=== PATIENT | female | born 1955 | race Two or more races ===

== ENCOUNTER 2018-06-08 09:28 | Emergency (ER) | payer OTHER ==
[~2018-06-08] VITALS: Ht 170.2 cm; Wt 97.1 kg
[~2018-06-08 09:28] MED LIST: AZITHROMYCIN250 MG ORAL; CIPRO500 MG PO; CRESTOR10 MG PO; IBUPROFEN600 MG ORAL; METRONIDAZOLE500 MG ORAL; SYNTHROID100 MCG PO
[2018-06-08 09:34] VITALS: BP 127/84
[2018-06-08] MEDS ORDERED: Isovue-300 100ml vial INJ PRN (10:00)
[2018-06-08 10:09] LABS: APPEARANCE,URINE CLEAR; BILIRUBIN, URINE NEGATIVE (NEGATIVE); COLOR,URINE PALE YELLOW; GLUCOSE, URINE (UA) NEGATIVE (NEGATIVE); KETONES,URINE NEGATIVE (NEGATIVE); LEUKOCYTE ESTERASE ,URINE NEGATIVE (NEGATIVE); NITRITE,URINE NEGATIVE (NEGATIVE); PH,URINE 6 (4.5-8.0); PROTEIN,URINE NEGATIVE (NEGATIVE); UROBILINOGEN,URINE NORMAL MG/DL (0.0-1.0)
[2018-06-08 10:11] LABS: BASOPHILS % (AUTO) 0.8 % (0.0-2.0); EOSINOPHILS % (AUTO) 1.3 % (0.0-3.0); HEMATOCRIT 43.2 % (37.0-47.0); HEMOGLOBIN 14.5 G/DL (12.0-16.0); LYMPHOCYTES % (AUTO) 37.6 % (20.0-45.0); MEAN CORPUSCULAR VOLUME 86 FL (80-99); MONOCYTES % (AUTO) 6.7 % (1.0-10.0); NEUTROPHILS % (AUTO) 53.6 % (45.0-75.0); PLATELET COUNT 284 K/UL (150-450); RED CELL DISTRIBUTION WIDTH 12.5 % (11.6-14.8); WHITE BLOOD COUNT 7.3 K/UL (4.8-10.8)
[2018-06-08 10:20] LABS: ANION GAP 6 mmol/L (5-15); BLOOD UREA NITROGEN 14 mg/dL (7-18); CALCIUM 9.1 MG/DL (8.5-10.1); CARBON DIOXIDE 26 MMOL/L (21-32); CHLORIDE 106 MMOL/L (98-107); POTASSIUM 4.1 MMOL/L (3.5-5.1); SODIUM 138 MMOL/L (136-145)
[2018-06-08 10:25] LABS: ALANINE AMINOTRANSFERASE 24 U/L (12-78); ALBUMIN 3.6 G/DL (3.4-5.0); ALBUMIN/GLOBULIN RATIO 0.8 (1.0-2.7); ALKALINE PHOSPHATASE 54 U/L (46-116); ASPARTATE AMINO TRANSFERASE 23 U/L (15-37); BILIRUBIN,TOTAL 0.5 MG/DL (0.2-1.0)
--- NOTE | 2018-06-08 10:39 | Emergency Room Report ---
History of Present Illness General Chief Complaint: Abdominal Pain Source: Patient, Medical Record Present Illness HPI Patient presents emergency department today complaining of abdominal pain. Patient states that she's had abdominal pain for several weeks with multiple bowel movements. She denies any vomiting but complains of nausea. The pain is more in the suprapubic and bilateral lower quadrants. She denies any fever. No other complaints are noted. Symptoms noted to be severe. No other modifying factors. No other associated signs and symptoms. No other complaints were noted. Allergies: Coded Allergies: PENICILLINS (Verified Allergy, Severe, Rash, 06/23/12) patient stated has severe reaction to penicillin Patient History Past Medical History: other - Hypothyroidism Past Surgical History: other - Tummy tuck, breast reduction Pertinent Family History: none Social History: Denies: smoking, alcohol use, drug use Last Menstrual Period: 12 yrs ago Reviewed Nursing Documentation: PMH: Agreed; PSxH: Agreed Nursing Documentation-PMH Past Medical History: No History, Except For Hx Gastrointestinal Problems: Yes - Diverticulitis Review of Systems All Other Systems: negative except mentioned in HPI Physical Exam Vital Signs Date Time Temp Pulse Resp B/P (MAP) Pulse Ox O2 Delivery O2 Flow Rate FiO2 06/08/18 09:32 98.2 78 18 124/78 97 Room Air Sp02 EP Interpretation: reviewed, normal General Appearance: normal inspection, well appearing, no apparent distress, alert Head: atraumatic Eyes: bilateral eye normal inspection ENT: normal ENT inspection, hearing grossly normal, normal voice Neck: normal inspection, full range of motion, supple, no bony tend Respiratory: normal inspection, lungs clear, normal breath sounds, no respiratory distress, no retraction, no wheezing Cardiovascular #1: regular rate, rhythm, no edema Gastrointestinal: normal inspection, normal bowel sounds, soft, no guarding, no hernia, tenderness - Mild bilateral lower quadrant Genitourinary: no CVA tenderness Musculoskeletal: normal inspection, back normal, normal range of motion Neurologic: normal inspection, alert, responsive, speech normal Psychiatric: normal inspection, judgement/insight normal, mood/affect normal Skin: normal inspection, normal color, no rash Medical Decision Making Diagnostic Impression: Primary Impression: Diverticulitis Additional Impression: Hypothyroidism ER Course Patient presents to the emergency department today complaining of abdominal pain. Differential considerations include acute pancreatitis, cholecystitis, gastritis, hepatitis, appendicitis just to name a few. Given the severity of the patient's presentation I felt this is a highly complex patient. This patient required extensive workup. Patient laboratory workup was not impressive except for evidence of very elevated TSH. Patient doesn't history hypothyroidism for which she takes Synthroid. I advised the patient follow primary care physician and adjust Synthroid dose. Patient has CT scan and pelvis performed which shows evidence of mild inflammation in the sigmoid colon and descending colon. Given patient has pain in this area and she thinks that there's been change she thinks that she might be having diverticulitis, I felt it was prudent prescribe patient with antibiotics. She was started on Cipro and Flagyl. Patient is advised to follow up with primary doctor in 2-3 days and return the emergency room for any worsening symptoms and as needed. Labs Test 06/08/18 09:50 White Blood Count 7.3 K/UL (4.8-10.8) Red Blood Count 5.00 M/UL (4.20-5.40) Hemoglobin 14.5 G/DL (12.0-16.0) Hematocrit 43.2 % (37.0-47.0) Mean Corpuscular Volume 86 FL (80-99) Mean Corpuscular Hemoglobin 29.0 PG (27.0-31.0) Mean Corpuscular Hemoglobin Concent 33.5 G/DL (32.0-36.0) Red Cell Distribution Width 12.5 % (11.6-14.8) Platelet Count 284 K/UL (150-450) Mean Platelet Volume 7.6 FL (6.5-10.1) Neutrophils (%) (Auto) 53.6 % (45.0-75.0) Lymphocytes (%) (Auto) 37.6 % (20.0-45.0) Monocytes (%) (Auto) 6.7 % (1.0-10.0) Eosinophils (%) (Auto) 1.3 % (0.0-3.0) Basophils (%) (Auto) 0.8 % (0.0-2.0) Prothrombin Time 10.2 SEC (9.30-11.50) Prothromb Time International Ratio 1.0 (0.9-1.1) Activated Partial Thromboplast Time 36 SEC (23-33) Urine Color Pale yellow Urine Appearance Clear Urine pH 6 (4.5-8.0) Urine Specific [place] 1.010 (1.005-1.035) Urine Protein Negative (NEGATIVE) Urine Glucose (UA) Negative (NEGATIVE) Urine Ketones Negative (NEGATIVE) Urine Blood Negative (NEGATIVE) Urine Nitrite Negative (NEGATIVE) Urine Bilirubin Negative (NEGATIVE) Urine Urobilinogen Normal MG/DL (0.0-1.0) Urine Leukocyte Esterase Negative (NEGATIVE) Sodium Level 138 MMOL/L (136-145) Potassium Level 4.1 MMOL/L (3.5-5.1) Chloride Level 106 MMOL/L (98-107) Carbon Dioxide Level 26 MMOL/L (21-32) Anion Gap 6 mmol/L (5-15) Blood Urea Nitrogen 14 mg/dL (7-18) Creatinine 1.0 MG/DL (0.55-1.30) Estimat Glomerular Filtration Rate 56.4 mL/min (>60) Glucose Level 110 MG/DL (74-106) Calcium Level 9.1 MG/DL (8.5-10.1) Total Bilirubin 0.5 MG/DL (0.2-1.0) Aspartate Amino Transf (AST/SGOT) 23 U/L (15-37) Alanine Aminotransferase (ALT/SGPT) 24 U/L (12-78) Alkaline Phosphatase 54 U/L (46-116) Total Protein 8.0 G/DL (6.4-8.2) Albumin 3.6 G/DL (3.4-5.0) Globulin 4.4 g/dL Albumin/Globulin Ratio 0.8 (1.0-2.7) Lipase 163 U/L (73-393) Thyroid Stimulating Hormone (TSH) 14.502 uiU/mL (0.358-3.740) Last Vital Signs Date Time Temp Pulse Resp B/P (MAP) Pulse Ox O2 Delivery O2 Flow Rate FiO2 06/08/18 09:34 78 18 Room Air 06/08/18 09:34 98.2 127/84 97 Status: improved Disposition: HOME, SELF-CARE Condition: Stable Scripts Metronidazole* (FLAGYL*) 500 Mg Tablet 500 MG ORAL BID for 10 Days, TAB Prov: Gareth Currie MD 06/08/18 Ciprofloxacin Hcl* (CIPROFLOXACIN HCL*) 500 Mg Tablet 500 MG ORAL Q12H, #20 TAB 0 Refills Prov: Gareth Currie MD 06/08/18 Referrals: NON PHYSICIAN (PCP) Gareth Currie MD Jun 08, 2018 10:39
--- NOTE | 2018-06-08 11:10 | Diagnostic Imaging Report ---
Clinical Indication: Abdominal pain Technique: No oral contrast utilized, per emergency room physician request IV administration nonionic contrast. Venous phase spiral acquisition obtained through the abdomen and pelvis. Multiplanar reconstructions were generated. Total dose length product 1082.3 mGycm. CTDIvol(s) 19.07 mGy. Dose reduction achieved using automated exposure control Comparison: 07/24/2013 Findings: Lack of enteric contrast limits assessment of the GI tract. Appendix is normal in caliber, contains an unusual amount of fat. Appearance is unchanged. There is colonic diverticulosis. There is very questionable minimal infiltration of the pericolonic fat at the junction of the distal descending colon and proximal sigmoid, although this is much less apparent than on the previous exam. There is minimal colonic wall thickening at this level.. There are small fat-containing bilateral inguinal hernias. No small bowel distention. There is a fat-containing umbilical hernia now present. There is also small hiatal hernia. The remainder of the stomach and duodenum are unremarkable. No free or loculated intraperitoneal gas or fluid is evident. The liver, gallbladder, bile ducts, pancreas, spleen, adrenals, left kidney are unremarkable. Right kidney demonstrates multiple subcentimeter low-attenuation lesions which are too small to characterize. 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 No retroperitoneal or mesenteric mass or adenopathy. The uterus is slightly heterogeneous. No adnexal mass. The bladder is unremarkable. No pelvic mass or adenopathy. The included lung bases are clear. The heart size is upper limits normal. The bones demonstrate mild degenerative spondylosis changes Impression: Colonic diverticulosis. Equivocal minimal infiltration of the pericolonic fat adjacent to the descending and sigmoid colon junction. Of doubtful significance but if real could indicate residua of previously demonstrated acute diverticulitis or minimal very early acute diverticulitis. Correlate with clinical findings No acute findings otherwise Slightly heterogeneous uterus, could indicate fibroid changes Subcentimeter low-attenuation right renal lesion, too small to characterize. Most likely benign simple cortical cysts. No further follow-up necessary Other findings as noted, including fat-containing umbilical hernia, small hiatal hernia, circumaortic left renal vein, degenerative spondylosis The CT scanner at [facility] is accredited by the [employer] and the scans are performed using protocols designed to limit radiation exposure to as low as reasonably achievable to attain images of sufficient resolution adequate for diagnostic evaluation.
[2018-06-08 12:03] VITALS: BP 127/76
[2018-06-08] MEDS ORDERED: CIPROFLOXACIN500 M2 ORAL (12:28)
[2018-06-08] MEDS ORDERED: METRONIDAZOLE500 MG ORAL (12:28)
[2018-06-08 12:34] VITALS: BP 107/79
== END 2018-06-08 12:35 | disposition home or self-care (01) ==
LOC: EMR 09:44
DX: K57.92 Diverticulitis of intestine, part unspecified, without perforation or abscess without bleeding (principal); E03.9 Hypothyroidism, unspecified; Z88.0 Allergy status to penicillin
CPT/HCPCS: 36415; 74177; 80053; 81003; 83690; 84443; 85025; 85610; 85730; 96360; 99284; Q9967